=== PATIENT | male | born 1985 | race Caucasian/White ===

== ENCOUNTER 2022-07-03 18:09 | Emergency (ER) | payer SELFPAY ==
[2022-07-03 18:11] VITALS: BP 110/80; PULSE 64; RESP 18; TEMP 36.8; O2SAT 100; BMI 21.7
--- NOTE | 2022-07-03 21:31 | EX.ED.DYSGE1 ---
HPI History of Present Illness Chief Complaint: Dizziness Narrative Narrative: 37-year-old male here for dizziness and nausea. The patient states he has developed symptoms over the last week. He states they are worse with him bending down upon standing he gets dizzy. States he is been nauseous but has no vomiting. States his symptoms are intermittent. Denies any falls. Denies any recent bleeding diathesis. No recent volume loss such as vomiting or diarrhea. No increased urination. No fever or sick contacts. No personal family history of CVA. Denies any chest pain or shortness of breath Old chart reviewed: No significant past medical history Last ED visit in 2014 [facility] Medical History (Updated 07/03/22 @ 22:[address] Luca Saleh, DO) Depression Home Medications ashisaiahdha root extract 300 mg capsule mg PO 07/03/22 [History Last Taken Unknown] Allergy/AdvReac Type Severity Reaction Status Date / Time bupropion HCl Allergy Swelling Verified 07/03/22 18:10 [From Wellbutrin] Penicillins Allergy Hives Verified 07/03/22 18:10 Surgical History (Updated 07/03/22 @ 19:58 by Maci Galarza) History of tonsillectomy Social History Smoking Status: Never smoker ROS ROS ED Eyes Eyes: Denies other visual disturbances ENT ENT ED: Denies ear pain Cardiovascular Cardiovascular: Denies chest pain Respiratory/Chest Respiratory/Chest: Denies dyspnea Gastrointestinal Gastrointestinal: Denies abdominal pain Genitourinary Genitourinary ED: Denies dysuria Musculoskeletal Musculoskeletal: Denies joint pain Integumentary Denies rash Neurologic Neurologic: Reports dizziness; Denies focal weakness, frequent falls, headache(s), lack of coordination, numbness, syncope or weakness Psychiatric Psychiatric: Denies homicidal ideation or suicidal ideation EXAM Physical Exam Const Vital Signs: 07/03/22 18:11 07/03/22 19:57 Temperature 98.2 F Temperature Source Temporal Pulse Rate 64 Respiratory Rate 18 Respiratory Pattern Normal Blood Pressure 110/80 Blood Pressure Mean 90 Pulse Ox 100 Oxygen Delivery Method Room Air Positive well nourished General Appearance ED: Negative for comfortable Orientation / Consciousness: Negative for awake HEENT Denies normocephalic Face and Sinus: Negative for face symmetric External Ear: Negative for external ears normal Mouth ED: No moist mucous membranes normal Throat: Negative for posterior oropharynx normal Eyes Negative for PERRL or EOMs intact bilaterally Neck No full ROM Carotids: other Other Details: no carotid bruits Chest Wall Negative for inspection of chest normal Resp No normal respiratory effort, No no retractions, No no use of accessory muscles and No clear to auscultation bilaterally Cardio Negative for no murmurs or peripheral pulses 2+ throughout GI Negative for no bruits GI Narrative: no pulsatile abdominal masses Negative for no CVA tenderness Back/Spine Cervical Spine: Negative for cervical ROM normal Extremity Negative for normal to inspection or full ROM Neuro Neuro Narrative: Alert and oriented x3, neuro exam at baseline, cranial nerves II through XII are intact. No pain with extraocular muscle movement. There is negative test of skew. Normal speech. 5 of 5 strength in upper and lower extremities in flexion extension. Intact sensation to light touch in upper and lower extremity dermatomes. No truncal or extremity ataxia. No dysdiadochokinesia. Normal gait. 2+ reflexes. No meningeal signs. Negative Babinski. NIH of 0 MDM MDM MDM Narrative Medical decision making narrative: 37-year-old male here with intermittent dizziness/lightheadedness and nausea upon bending down. No focal neurologic deficits, NIH of 0. Low suspicion for posterior circulation stroke at this time. There is no volume loss to suggest dehydration, no vomiting or diarrhea to suggest electrolyte abnormalities. No bleeding diathesis to suggest anemia. Patient denies chest pain did obtain EKG to rule out arrhythmia as a cause of his dizziness. EKG showed normal sinus rhythm with no abnormalities. Gave Zofran for symptomatic nausea control. Suspect patient's lightheadedness is secondary to dehydration from decreased p.o. intake secondary to nausea. He had a benign abdominal exam. His abdominal exam is not consistent with an acute surgical abdomen. No need for advanced imaging or additional labs at this time. Treatment and Re-Evaluation Narrative: Patient was symptomatically better he is appropriate for discharge home with close PCP follow-up and strict return precautions. Discharge Plan Triage Chief Complaint: Dizziness ED Provider: Luca Saleh Dx/Rx/DC Orders Clinical Impression: Intermittent lightheadedness Prescriptions: No Action ashwagandha root extract 300 mg Capsule PO Primary Care Provider: Care Physician,No Primary Referrals: Care Physician,No Primary [Primary Care Provider] -
--- NOTE | 2022-07-03 21:49 | EKG12_ITS ---
Test Reason : DYSRHYTHMIA Blood Pressure : / mmHG Vent. Rate : 055 BPM Atrial Rate : 055 BPM P-R Int : 168 ms QRS Dur : 096 ms QT Int : 442 ms P-R-T Axes : 024 024 036 degrees QTc Int : 422 ms Sinus bradycardia Low voltage QRS (Limb Leads) Confirmed by ROSA ZARAGOZA, CARLOS ([id number]), editor newspaper HAKAN VORA ([id number]) on 07/05/2022 8:10:43 AM Referred By: PAMELA Confirmed By:CARLOS LEE MD
[2022-07-03] MEDS: Ondansetron ODT 4 MG Tablet PO (22:07)
[2022-07-03 23:12] VITALS: BP 120/81; PULSE 58; RESP 18; O2SAT 97
== END 2022-07-03 23:16 | disposition home or self-care (01) ==
PROVIDERS: Emergency Provider Emergency Medicine; Visit Provider Emergency Medicine
DX: R42 Dizziness and giddiness (principal)
CPT/HCPCS: 93005; 99283